=== PATIENT | female | born 1985 | race Caucasian/White ===

== ENCOUNTER → 2018-06-16 | Outpatient (CLI) | payer OTHER ==
[~2018-06-16] MED LIST: BANOPHEN25 M1 PO; CLARITIN10 MG PO; HYDROCODONE-AP1 EAC6 PO; IRON325 M1 PO; KOMBIGLYZE XR1 EACH PO; LIPITOR10 MG PO; METFORMIN HCL500 MG PO; NAPROSYN500 MG PO; STOOL SOFTENER100 MG PO; TRINATE TABLET1 TAB PO
== END ==
LOC: M.ULTRA 06-08 16:36
DX: E04.1 Nontoxic single thyroid nodule (principal); N92.1 Excessive and frequent menstruation with irregular cycle; E03.9 Hypothyroidism, unspecified; N85.00 Endometrial hyperplasia, unspecified